=== PATIENT | male | born 1980 | race African-American/Black ===

== ENCOUNTER 2022-08-17 14:18 | Emergency (ER) | payer MEDICAID ==
[~2022-08-17] VITALS: Ht 170.2 cm; Wt 114.0 kg
[2022-08-17 15:05] VITALS: BP 144/93
[2022-08-17 18:25] LABS: BASOPHILS % 1.1 % (0.0-2.0); EOSINOPHILS % 3.8 % (0.0-5.0); HEMATOCRIT. 40.3 % (42.0-52.0); HEMOGLOBIN. 13.6 g/dL (14.0-18.0); LYMPHOCYTES % 23.8 % (20.0-50.0); MEAN CORPUSCULAR HEMOGLOBIN 32.1 pg (28.0-32.0); MEAN CORPUSCULAR VOLUME 95.2 fL (80.0-94.0); MEAN PLATELET VOLUME 7.5 fl (7.4-10.4); MONOCYTES % 8.8 % (2.0-8.0); NEUTROPHILS % 62.5 % (40.0-76.0); PLATELET 299 x1000/uL (130-400); RED BLOOD CELL COUNT 4.24 mill/uL (4.7-6.1); RED CELL DISTRIBUTION WIDTH 15.3 % (11.6-14.6)
[2022-08-17 18:31] LABS: CHLORIDE 104 mEq/L (98-107)
[2022-08-17] MEDS ORDERED: IBUPROFEN 600MG TABLET PO STA (19:15)
== END 2022-08-17 21:23 | disposition left against medical advice (07) ==
LOC: ER 15:20
DX: R10.9 Unspecified abdominal pain (principal)
CPT/HCPCS: 36415; 80053; 85025; 99283